=== PATIENT | female | born 1965 | race Caucasian/White ===

== ENCOUNTER 2016-10-15 23:56 | Inpatient (IN) | payer MEDICAID, OTHER ==
[~2016-10-15 23:56] MED LIST: ETOMIDATE 20 MG/10 ML VIAL IV PUSH ONE
[2016-10-15] MEDS ORDERED: PROPOFOL 1000 MG/100 ML INJ 100 ML ONE (23:59)
[2016-10-16] VITALS (19 sets, daily range): BP systolic 108–177; BP diastolic 61–85; PULSE 83–110; RESP 15–16; TEMP 97.4–99.7; O2SAT 97–100
[2016-10-16] MEDS ORDERED: MAGNESIUM HYDROXIDE SUSP 30 ML CUP PO PRN (00:15)
[2016-10-16] MEDS ORDERED: CHLORHEXIDINE GLUCONATE 2 % 1 PACK (2 CLOTHS) TOP PRN (00:15)
[2016-10-16] MEDS ORDERED: ENALAPRILAT 1.25 MG/ML VIAL IV PRN (00:15)
[2016-10-16] MEDS ORDERED: FLUMAZENIL 0.5 MG/5 ML VIAL IV PUSH PRN (00:15)
[2016-10-16] MEDS ORDERED: LORazepam 1 MG TAB PO PRN (00:15)
[2016-10-16] MEDS ORDERED: HALOPERIDOL LACTATE 5 MG/ML AMP IM PRN (00:15)
[2016-10-16] MEDS ORDERED: LORazepam 2 MG/ML VIAL IV PUSH PRN ×4 (00:15)
[2016-10-16] MEDS ORDERED: MORPHINE SULFATE 4 MG/ML INJ IV PRN (00:15)
[2016-10-16] MEDS: BACITRACIN TOP OINT 15 GM TUBE TOP SCH ×3 (00:15→21:00)
[2016-10-16] MEDS ORDERED: LORazepam 2 MG TAB PO PRN (00:15)
[2016-10-16] MEDS ORDERED: ONDANSETRON HCL 4 MG/2 ML VIAL IV PRN (00:15)
[2016-10-16] MEDS ORDERED: MISCELLANEOUS NURSING INFORMATION XX SCH (00:15)
--- NOTE | 2016-10-16 00:15 | PD ---
HPI Chief Complaint: Trauma (Alert) Time Seen by Provider: 00:07 Travel History International Travel<30 days: No Contact w/Intl Traveler<30days: No Traveled to known affect area: No History of Present Illness HPI This patient presents as a trauma alert. She is a 50-year-old lady that fell backwards and struck the back of her head. 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 I gave reported trauma surgeon Dr. Tay who was present in the ER upon arrival of the patient. She was airlifted from the land. Initially had a GCS of 14 with that declined to a GCS of 9. That's when the trauma alert was called. However she continued to decline and paramedics intubated her on scene and she arrived intubated. Obviously she can provide no history or review of systems. Medical history is unknown at this time. Allergies-Medications (Allergen,Severity, Reaction): Coded Allergies: UNOBTAINABLE (Unverified , 10/16/16) AMS Review of Systems ROS Limitations: Clinical Condition, Intubated Physical Exam Narrative GENERAL: Well-nourished, well-developed patient who arrives intubated. SKIN: Focused skin assessment reveals no rash and nodules. Skin is Warm and dry. HEAD: Has a large swollen area on the occiput without laceration. No active bleeding EYES: Pupils equal and round. No scleral icterus. No injection or drainage. ENT: No nasal bleeding or discharge. Mucous membranes pink and moist. NECK: Trachea midline. No JVD. C-collar maintained CARDIOVASCULAR: Regular rate and rhythm. No murmur appreciated. RESPIRATORY: No accessory muscle use. Clear to auscultation with respiratory bagging. Breath sounds equal bilaterally. GASTROINTESTINAL: Abdomen soft, non-tender, nondistended. Hepatic and splenic margins not palpable. MUSCULOSKELETAL: No obvious deformities. No clubbing. No cyanosis. No edema. NEUROLOGICAL: Patient is sedated and intubated. No obvious cranial nerve deficits. Impossible to test motor strength or sensation or speech. PSYCHIATRIC: Impossible to test mood and affect; insight and judgment likewise untestable. Data Data Orders Propofol 1000 Mg/100 Ml Inj (Diprivan 10 (10/15/16 23:59) I-Stat Profile (10/16/16 00:03) I-Stat Creatinine (10/16/16 00:03) Complete Blood Count With Diff (4/23/17 00:03) Prothrombin Time / Inr (Pt) (10/16/16 00:03) Act Partial Throm Time (Ptt) (10/16/16 00:03) Type And Screen (10/16/16 00:03) Fibrinogen (10/16/16 00:03) Alcohol (Ethanol) (10/16/16 00:03) Chest, Single Ap (10/16/16 00:03) Pelvis, Ap Only (Routine) (10/16/16 00:03) Ct Brain W/O Iv Contrast(Rout) (10/16/16 00:03) Ct Cerv Spine W/O Contrast (10/16/16 00:03) Iv Access Insert/Monitor (10/16/16 00:03) Ecg Monitoring (10/16/16 00:03) Oximetry (10/16/16 00:03) Oxygen Administration (10/16/16 00:03) Admit To Inpatient (10/16/16 ) Vital Signs (Adult) KULDEEP.QSHIFT (10/16/16 00:05) Intake + Output KULDEEP.Q8H (10/16/16 00:05) Neuro Checks KULDEEP.Q1H (10/16/16 00:05) Activity Bed Rest (10/16/16 00:05) Diet Npo (10/16/16 Breakfast) ^ Orogastric Tube (10/16/16 00:05) Warming Idamay / Warming Syst PRN (10/16/16 00:05) ^ Cervical Collar (10/16/16 00:05) ^ Instruction (10/16/16 00:05) Complete Blood Count With Diff (10/16/16 06:00) Basic Metabolic Panel (Bmp) (10/16/16 06:00) Chest, Single Ap (10/16/16 06:00) Arterial Blood Gas (Abg) (10/16/16 ) Sodium Chlor 0.9% 1000 Ml Inj (Ns 1000 M (10/16/16 00:05) Sodium Chloride 0.9% Flush (Ns Flush) (10/16/16 00:15) Morphine Inj (Morphine Inj) (10/16/16 00:15) Acetaminophen (Tylenol) (10/16/16 00:15) Enalaprilat Inj (Vasotec Inj) (10/16/16 00:15) Ondansetron Inj (Zofran Inj) (10/16/16 00:15) Pantoprazole Inj (Protonix Inj) (10/16/16 01:00) Bacitracin Oint (Baciguent Oint) (10/16/16 00:15) Folic Acid (Folate) (10/16/16 09:00) Thiamine (Vit B1) (Vitamin B1) (10/16/16 09:00) Multivitamin (Theragran) (10/16/16 09:00) Docusate Sodium (Colace) (10/16/16 09:00) Magnesium Hydroxide Liq (Milk Of Magnesi (10/16/16 00:15) Consult Tick Eradicator (10/16/16 ) ^ Initiate Protocol (10/16/16 00:05) ^ Instruction (10/16/16 00:05) Misc Nursing Information (10/16/16 00:15) Chlorhexidine 2% Cloth (Chlorhexidine 2% (10/16/16 04:00) Chlorhexidine 2% Cloth (Chlorhexidine 2% (10/16/16 00:15) Mrsa Pcr Surveillance (10/16/16 00:05) Alcohol Withdrawal Asmt-Ciwa Q4HX18 (10/16/16 00:05) Flumazenil Inj (Romazicon Inj) (10/16/16 00:15) Lorazepam (Ativan) (10/16/16 00:15) Lorazepam Inj (Ativan Inj) (10/16/16 00:15) Lorazepam (Ativan) (10/16/16 00:15) Lorazepam Inj (Ativan Inj) (10/16/16 00:15) Lorazepam Inj (Ativan Inj) (10/16/16 00:15) Lorazepam Inj (Ativan Inj) (10/16/16 00:15) Haloperidol Inj (Haldol Inj) (10/16/16 00:15) Inpatient Certification (10/16/16 ) Consult Emma Gts (10/16/16 ) Admit Order (Ed Use Only) (10/16/16 00:20) Labs Laboratory Tests Test 10/15/16 23:59 White Blood Count 8.1 TH/MM3 Red Blood Count 4.47 MIL/MM3 Hemoglobin 14.2 GM/DL Bedside Hemoglobin 15.3 G/DL Hematocrit 42.4 % Bedside Hematocrit 45.0 % Mean Corpuscular Volume 94.9 FL Mean Corpuscular Hemoglobin 31.8 PG Mean Corpuscular Hemoglobin 33.5 % Concent Red Cell Distribution Width 12.6 % Platelet Count 271 TH/MM3 Mean Platelet Volume 8.1 FL Neutrophils (%) (Auto) 39.5 % Lymphocytes (%) (Auto) 48.9 % Monocytes (%) (Auto) 6.9 % Eosinophils (%) (Auto) 3.9 % Basophils (%) (Auto) 0.8 % Neutrophils # (Auto) 3.2 TH/MM3 Lymphocytes # (Auto) 4.0 TH/MM3 Monocytes # (Auto) 0.6 TH/MM3 Eosinophils # (Auto) 0.3 TH/MM3 Basophils # (Auto) 0.1 TH/MM3 CBC Comment DIFF FINAL Differential Comment Prothrombin Time 10.1 SEC Prothromb Time International 0.9 RATIO Ratio Activated Partial 24.3 SEC Thromboplast Time Fibrinogen 327 mg/dL Bedside Sodium 146 MMOL/L Bedside Potassium 4.3 MMOL/L Bedside Chloride 107 MMOL/L Bedside Blood Urea Nitrogen 15 MG/DL Bedside Creatinine 1.0 MG/DL Bedside Glucose 119 MG/DL Ethyl Alcohol Level 245 MG/DL Blood Type O POSITIVE Antibody Screen NEGATIVE [facility] Medical Screen Exam Complete: Yes Emergency Medical Condition: Yes Medical Record Reviewed: Yes Differential Diagnosis Intracranial hemorrhage, skull fracture, concussion Narrative Course This patient arrives critically ill as a trauma alert with head injury and poor GCS and has been intubated for airway control A second IV was placed I started her on IV Diprivan for sedation, last BP 125 systolic I reviewed her chest x-ray which shows decent tube placement which is 3 cm above the breanna I reviewed her pelvis x-ray which is negative Brain CT shows no intracranial injury. Cervical spine CT is negative Alcohol level is 245 CBC is normal Metabolic profile is normal Coagulation studies are normal Patient has an acute head injury with poor GCS necessitating intubation to control airway She is intoxicated acutely of alcohol She is admitted to intensive care on a ventilator Metabolic profile Critical Care Narrative Aggregate critical care time was 34 minutes. Time to perform other separately billable procedures was not included in the critical care time. My time did not include minutes spent treating any other patients simultaneously or on activities that did not directly contribute to the patient's treatment. The services I provided to this patient were to treat and/or prevent clinically significant deterioration that could result in: Brain stem herniation, intracranial hemorrhage, permanent neurologic deficit I provided critical care services requiring my management, as noted below: Chart data review, documentation time, medication orders and management, vital sign assessments/reviewing monitor data, ordering and reviewing lab tests, ordering and interpreting/reviewing x-rays and diagnostic studies, care of the patient and discussion of the patient with the admitting physicians. Trauma Alert - Level One Trauma Alert Level One: Full trauma team activate Diagnosis Diagnosis: Primary Impression: Acute head injury with loss of consciousness Qualified Code: S06.9X1A - Acute head injury with loss of consciousness, with LOC of 30 min or less, initial encounter Additional Impressions: Airway compromise Alcohol intoxication Qualified Code: F10.129 - Alcohol intoxication, with unspecified complication Admitting Physician Requests: Milton Gudino MD Oct 16, 2016 00:15
--- NOTE | 2016-10-16 00:22 | RADRPT ---
EXAM DATE/TIME: 10/16/2016 00:09 [facility] COMPARISON: No previous studies available for comparison. INDICATIONS : Trauma; fall. RADIATION DOSE: 50.02 CTDIvol (mGy) MEDICAL HISTORY : Non-responsive. SURGICAL HISTORY : Non-responsive. ENCOUNTER: Initial ACUITY: 1 day PAIN SCALE: Non-responsive LOCATION: cranial TECHNIQUE: Multiple contiguous axial images were obtained of the head. Using automated exposure control and adj ustment of the mA and/or kV according to patient size, radiation dose was kept as low as reasonably a chievable to obtain optimal diagnostic quality images. FINDINGS: CEREBRUM: The ventricles are normal for age. No evidence of midline shift, mass lesion, hemorrhage or acute in farction. No extra-axial fluid collections are seen. POSTERIOR FOSSA: The cerebellum and brainstem are intact. The 4th ventricle is midline. The cerebellopontine angle i s unremarkable. EXTRACRANIAL: The visualized portion of the orbits is intact. Right posterior parietal soft tissue hematoma. Mucosa l thickening involving the visualized paranasal sinuses. No air-fluid levels. Mastoid air cells are c lear. SKULL: The calvaria is intact. No evidence of skull fracture. CONCLUSION: 1. No acute intracranial abnormality. 2. Right parietal soft tissue hematoma. 3. Chronic paranasal sinus disease. Tin Stewart Jr., MD on October 16, 2016 at 0:18 Board Certified Radiologist. This report was verified electronically.
[2016-10-16 00:28] LABS: I-STAT POTASSIUM 4.3 MMOL/L (3.5-4.9)
[2016-10-16 00:29] LABS: AUTOMATED NEUTROPHIL # 3.2 TH/MM3 (1.8-7.7); BASOPHIL # 0.1 TH/MM3 (0-0.2); BASOPHIL % 0.8 % (0.0-2.0); EOSINOPHIL # 0.3 TH/MM3 (0-0.4); EOSINOPHIL % 3.9 % (0.0-4.0); HEMATOCRIT 42.4 % (35.0-46.0); HEMO FLAGS DIFF FINAL; LYMPH % 48.9 % (9.0-44.0); MEAN CELL VOLUME 94.9 FL (80.0-100.0); MEAN CORPUSCULAR HEMOGLOBIN 31.8 PG (27.0-34.0); MEAN CORPUSCULAR HGB CONC 33.5 % (32.0-36.0); MONO % 6.9 % (0.0-8.0); NEUT % 39.5 % (16.0-70.0); PLATELET COUNT 271 TH/MM3 (150-450); RED BLOOD COUNT 4.47 MIL/MM3 (4.00-5.30); RED CELL DISTRIBUTION WIDTH 12.6 % (11.6-17.2); WHITE BLOOD COUNT 8.1 TH/MM3 (4.0-11.0)
--- NOTE | 2016-10-16 00:32 | RADRPT ---
EXAM DATE/TIME: 10/15/2016 23:51 [facility] COMPARISON: No previous studies available for comparison. INDICATIONS : E-T tube placement on a trauma alert who fell from a standing position. MEDICAL HISTORY : None. SURGICAL HISTORY : None. ENCOUNTER: Initial ACUITY: 1 day PAIN SCORE: Non-responsive. LOCATION: Bilateral chest FINDINGS: A single view of the chest demonstrates the lungs to be symmetrically aerated without evidence of mas s, infiltrate or effusion. The cardiomediastinal contours are unremarkable. Osseous structures are intact. Tip of the endotracheal tube approximately 3 cm cephalad to the breanna. CONCLUSION: Endotracheal tube. No acute intrathoracic process. Tin Stewart Jr., MD on October 16, 2016 at 0:30 Board Certified Radiologist. This report was verified electronically.
--- NOTE | 2016-10-16 00:32 | RADRPT ---
EXAM DATE/TIME: 10/16/2016 00:09 [facility] COMPARISON: No previous studies available for comparison. INDICATIONS : Trauma; fall. RADIATION DOSE: 21.40 CTDIvol (mGy) MEDICAL HISTORY : Non-responsive. SURGICAL HISTORY : Non-responsive. ENCOUNTER: Initial ACUITY: 1 day PAIN SCALE: Non-responsive LOCATION: neck TECHNIQUE: Volumetric scanning of the cervical spine was performed. Multiplanar reconstructions in the sagittal, coronal and oblique axial planes were performed. Using automated exposure control and adjustment o f the mA and/or kV according to patient size, radiation dose was kept as low as reasonably achievable to obtain optimal diagnostic quality images. FINDINGS: VERTEBRAE: Normal vertebral body height. ALIGNMENT: No evidence of subluxation. C2-C3: The bony spinal canal is normal in size. No evidence of disc bulge or herniation. The neural forami na are bilaterally patent. C3-C4: The bony spinal canal is normal in size. No evidence of disc bulge or herniation. The neural forami na are bilaterally patent. C4-C5: There is a broad-based disc bulge that just touches the ventral portion of the cord. Bony uncovertebr al hypertrophy generat moderate right and mild left neural foraminal narrowing. C5-C6: There is a broad-based disc osteophyte complex eccentric to the left and abuts the left ventral porti on of the cord and causes effacement of the left lateral recess. Bony uncovertebral hypertrophy gener at significant bilateral neural foraminal narrowing. C6-C7: A mild broad-based disc osteophyte complex without abutment of the cord. Bony uncovertebral hypertrop hy generat mild left neural foraminal narrowing. The right is patent. C7-T1: The bony spinal canal is normal in size. No evidence of disc bulge or herniation. The neural forami na are bilaterally patent. CONCLUSION: 1. No fracture or dislocation. 2. Multilevel degenerative changes. Tin Stewart Jr., MD on October 16, 2016 at 0:27 Board Certified Radiologist. This report was verified electronically.
--- NOTE | 2016-10-16 00:33 | RADRPT ---
EXAM DATE/TIME: 10/15/2016 23:51 [facility] COMPARISON: No previous studies available for comparison. INDICATIONS : Trauma Alert. fall from a standing position. MEDICAL HISTORY : None. SURGICAL HISTORY : None. ENCOUNTER: Initial ACUITY: 1 day PAIN SCORE: Non-responsive. LOCATION: Bilateral pelvis FINDINGS: A single frontal view of the pelvis demonstrates no evidence of fracture. The bony pelvic ring is in tact. Bony mineralization is normal. The soft tissues are intact. CONCLUSION: Unremarkable examination of the pelvis. Tin Stewart Jr., MD on October 16, 2016 at 0:31 Board Certified Radiologist. This report was verified electronically.
[2016-10-16 00:48] LABS: INTERNATIONAL NORMALIZED RATIO 0.9 RATIO; PROTHROMBIN TIME - PATIENT 10.1 SEC (9.8-11.6)
[2016-10-16 00:50] LABS: APTT (PATIENT) 24.3 SEC (24.3-30.1)
[2016-10-16] MEDS: PANTOPRAZOLE SODIUM 40 MG VIAL IVP SCH ×2 (01:53→23:59)
[2016-10-16] MEDS: SODIUM CHLOR 0.9% 1000 ML INJ 1,000 ML IV SCH ×3 (01:53→21:37)
[2016-10-16] MEDS ORDERED: BUPR150XL PO (02:11)
--- NOTE | 2016-10-16 02:18 | PD.CONS ---
HPI Service Critical Care Medicine Consult Requested By Primary Care Physician Unknown History of Present Illness 50-year-old lady that fell backwards and struck the back of her head. Initially had a GCS of 14 with that declined to a GCS of 9. That's when the trauma alert was called. She continued to decline and paramedics intubated her on scene and she arrived intubated. Review of Systems ROS Unable to obtain patient is sedated and intubated Past Family Social History Allergies: Coded Allergies: No Known Allergies (Unverified , 10/16/16) Past Medical History Unable to obtain Past Surgical History Unable to obtain Reported Medications Reported Meds & Active Scripts Active Reported Wellbutrin Xl 24 HR (Bupropion HCl) 150 Mg Tab 150 Mg PO DAILY Active Ordered Medications Current Medications Medications (Trade) Dose Ordered Sig/Omar Route PRN Reason Start Time Stop Time Status Last Admin Dose Admin Sodium Chloride (NS 1000 ml Inj) 1,000 ml @ 100 mls/hr Q10H IV 10/16/16 00:05 10/16/16 01:53 Sodium Chloride (NS Flush) 2 ml UNSCH PRN IV FLUSH FLUSH AFTER USING IV ACCESS 10/16/16 00:15 Morphine Sulfate (Morphine Inj) 2 mg Q1H PRN IV BREAKTHROUGH PAIN 10/16/16 00:15 Acetaminophen (Tylenol) 650 mg Q6H PRN PO TEMPERATURE > 102 F 10/16/16 00:15 Enalaprilat (Vasotec Inj) 1.25 mg Q8H PRN IV SBP>180, DBP>95 10/16/16 00:15 Ondansetron HCl (Zofran Inj) 4 mg Q6H PRN IV NAUSEA OR VOMITING 10/16/16 00:15 Pantoprazole Sodium (Protonix Inj) 40 mg Q24H IVP 10/16/16 01:00 10/16/16 01:53 Bacitracin (Baciguent Oint) 1 applic BID TOP 10/16/16 00:15 Folic Acid (Folate) 1 mg DAILY PO 10/16/16 09:00 10/19/16 08:59 Thiamine HCl (Vitamin B1) 100 mg DAILY PO 10/16/16 09:00 10/19/16 08:59 Multivitamins (Theragran) 1 tab DAILY PO 10/16/16 09:00 10/19/16 08:59 Docusate Sodium (Colace) 100 mg BID PO 10/16/16 09:00 Magnesium Hydroxide (Milk Of Magnkaren Liq) 30 ml Q6H PRN PO CONSTIPATION 10/16/16 00:15 Miscellaneous Information 1 Q361D XX 10/16/16 00:15 10/16/16 00:15 Chlorhexidine Gluconate (Chlorhexidine 2% Cloth) 3 pack Taper DAILY@04 TOP 10/16/16 04:00 10/12/17 03:59 Chlorhexidine Gluconate (Chlorhexidine 2% Cloth) 3 pack UNSCH PRN TOP HYGIENIC CARE 10/16/16 00:15 Flumazenil (Romazicon Inj) 0.2 mg Q1M PRN IV PUSH SEE LABEL COMMENTS 10/16/16 00:15 Lorazepam (Ativan) 1 mg Q4H PRN PO CIWA 8 - 10 10/16/16 00:15 Lorazepam (Ativan Inj) 1 mg Q4H PRN IV PUSH CIWA 8 - 10 10/16/16 00:15 Lorazepam (Ativan) 2 mg Q2H PRN PO CIWA 11-14 10/16/16 00:15 Lorazepam (Ativan Inj) 2 mg Q2H PRN IV PUSH CIWA 11-14 10/16/16 00:15 Lorazepam (Ativan Inj) 2 mg Q1H PRN IV PUSH CIWA 15-20 10/16/16 00:15 Lorazepam (Ativan Inj) 2 mg Q15M PRN IV PUSH CIWA > 20 10/16/16 00:15 Haloperidol Lactate (Haldol Inj) 2 mg Q15M PRN IM SEE LABEL COMMENTS 10/16/16 00:15 Family History Unable to obtain Social History Unable to obtain Physical Exam Vital Signs Vital Signs Date Time Temp Pulse Resp B/P Pulse Ox O2 Delivery O2 Flow Rate FiO2 10/16/16 00:40 100 10/16/16 00:30 100 100 Physical Exam GENERAL: Obese, well-developed patient. Sedated and intubated SKIN: Warm and dry. HEAD: Normocephalic. EYES: No scleral icterus. No injection or drainage. NECK: Supple, trachea midline. No JVD or lymphadenopathy. CARDIOVASCULAR: Regular rate and rhythm without murmurs, gallops, or rubs. RESPIRATORY: Breath sounds equal bilaterally. No accessory muscle use. GASTROINTESTINAL: Abdomen soft, non-tender, nondistended. MUSCULOSKELETAL: No cyanosis, or edema. BACK: Nontender without obvious deformity. No CVA tenderness. EXTREMITIES: No clubbing cyanosis or edema Laboratory Laboratory Tests Test 10/15/16 23:59 White Blood Count 8.1 Red Blood Count 4.47 Hemoglobin 14.2 Bedside Hemoglobin 15.3 Hematocrit 42.4 Bedside Hematocrit 45.0 Mean Corpuscular Volume 94.9 Mean Corpuscular Hemoglobin 31.8 Mean Corpuscular Hemoglobin 33.5 Concent Red Cell Distribution Width 12.6 Platelet Count 271 Mean Platelet Volume 8.1 Neutrophils (%) (Auto) 39.5 Lymphocytes (%) (Auto) 48.9 Monocytes (%) (Auto) 6.9 Eosinophils (%) (Auto) 3.9 Basophils (%) (Auto) 0.8 Neutrophils # (Auto) 3.2 Lymphocytes # (Auto) 4.0 Monocytes # (Auto) 0.6 Eosinophils # (Auto) 0.3 Basophils # (Auto) 0.1 CBC Comment DIFF FINAL Differential Comment Prothrombin Time 10.1 Prothromb Time International 0.9 Ratio Activated Partial 24.3 Thromboplast Time Fibrinogen 327 Bedside Sodium 146 Bedside Potassium 4.3 Bedside Chloride 107 Bedside Blood Urea Nitrogen 15 Bedside Creatinine 1.0 Bedside Glucose 119 Ethyl Alcohol Level 245 Blood Type O POSITIVE Antibody Screen NEGATIVE Result Diagram: 10/15/16 6409 Assessment and Plan Assessment and Plan Respiratory failure - Intubated for an airway protection - No SBT or weaning until neurologically improved - Frequent ABGs and chest x-rays daily Encephalopathy - Metabolic toxic - ??? Alkaline intoxication - Concussion - CT head negative - MRI and EEG Syncope - MRI EKG echocardiogram - Carotid ultrasound DVT GI prophylaxis - Teds SCDs - Lovenox and Pepcid Critical Care: The total critical care time was 35 minutes. Time to perform other separately billable procedures was not included in the critical care time. David Fragoso MD Oct 16, 2016 02:18
[2016-10-16 02:47] LABS: BLOOD, URINE NEG (NEG); GLUCOSE,URINE NEG (NEG); KETONE, URINE NEG (NEG); NITRITE,URINE NEG (NEG); URINE COLOR LIGHT-YELLOW (YELLW/STRAW)
[2016-10-16 02:54] LABS: COMMENT (UR) CATH-CULT NOT IND; CULTURE IF INDICATED CATH CULTURE NOT IND
[2016-10-16] MEDS: CHLORHEXIDINE GLUCONATE 2 % 1 PACK (2 CLOTHS) TOP SCH (04:00)
[2016-10-16 04:01] LABS: BICARBONATE 21.2 MEQ/L (21.0-32.0)
[2016-10-16 04:12] LABS: POTASSIUM 3.7 MEQ/L (3.5-5.1)
[2016-10-16 04:15] LABS: AUTOMATED NEUTROPHIL # 15.9 TH/MM3 (1.8-7.7); BASOPHIL # 0.1 TH/MM3 (0-0.2); BASOPHIL % 0.3 % (0.0-2.0); EOSINOPHIL # 0.3 TH/MM3 (0-0.4); EOSINOPHIL % 1.6 % (0.0-4.0); HEMATOCRIT 42.3 % (35.0-46.0); HEMO FLAGS DIFF FINAL; MEAN CELL VOLUME 93.9 FL (80.0-100.0); MEAN CORPUSCULAR HEMOGLOBIN 31.7 PG (27.0-34.0); MEAN CORPUSCULAR HGB CONC 33.8 % (32.0-36.0); MONO % 4.7 % (0.0-8.0); NEUT % 78.4 % (16.0-70.0); PLATELET COUNT 217 TH/MM3 (150-450); RED CELL DISTRIBUTION WIDTH 12.5 % (11.6-17.2); WHITE BLOOD COUNT 20.2 TH/MM3 (4.0-11.0)
--- NOTE | 2016-10-16 04:36 | MH ---
cc: JONATHAN ZAMAN DATE OF ADMISSION: 10/16/2016 CHIEF COMPLAINT Trauma alert HISTORY OF PRESENT ILLNESS The patient is a 48-year-old female, who per EMS report was intoxicated and fell from standing height onto the back of her head. She was unconscious for approximately two minutes and when EMS arrived, she initially refused the chance for it, however, she had sudden decrease in GCS and altered mental status prompting transport to [facility] as a Trauma Alert. The patient was found to be hemodynamically stable, was GCS less than 8 en route and underwent rapid sequence intubation with etomidate of 7 ET tube. The patient arrives at [facility]. Breathing is intact and verified. The patient was hemodynamically stable with a blood per rectum within normal range. O2 saturations were over 90%. REVIEW OF SYSTEMS, PAST MEDICAL AND SURGICAL HISTORY, SOCIAL HISTORY, ALLERGIES, MEDICATIONS, FAMILY HISTORY: Unobtainable, due to patient's altered mental status. PHYSICAL EXAMINATION Vital signs: Stable on the ventilator, normotensive. GENERAL: The patient is an obese female, intubated, comatose, medically induced after intubation. GCS 3, with ET tube in place. HEAD: The patient's head is normocephalic, swelling of the posterior occipital area with stable skull with no active bleeding or laceration. Midface is stable. Oral cavity is clear with the exception of ET tube. Pupils are round, reactive to light and accommodation, equal. NECK: Cervical collar in place. No deformity of cervical spine. Trachea is midline. No JVD. CHEST: Chest wall is stable, breath sounds present bilaterally. HEART: Regular rate and rhythm. ABDOMEN: Soft, nondistended. No ascites. No organomegaly. No seatbelt sign. BACK: No thoracic or lumbar deformity. No ecchymosis or trauma. EXTREMITIES: No clubbing, cyanosis or edema, no deformity all four extremities. NEUROLOGIC: GCS of 3, and intubated. LABORATORY VALUES: Pending. IMAGING STUDIES CT scan of the head does show no acute intracranial abnormality, right parietal soft tissue hematoma, chronic paranasal sinus disease. ASSESSMENT/PLAN The patient is a 48-year-old female who fell from standing height, possible ETOH. GCS less an 8, intubated. On arrival GCS 3 after RSI by EMS. The patient is hemodynamically stable. We will place her on short acting sedation with Diprivan and intubation to the Trauma Intensive Care Unit. Will consult polishing machine operator for management of the patient's airway and breathing. We will check and maintain the patient in a cervical collar. MD RAVIN Cason/LESLIE /12:28 AM /3:44 AM
[2016-10-16 05:37] LABS: BLOOD GAS CARBOXYHEMOGLOBIN 0.7 % (0-4); BLOOD GAS HCO3 21 mmol/L (22-26); BLOOD GAS METHEMOGLOBIN 1.2 % (0-2); BLOOD GAS O2 HGB SATURATION 93 % (90-100); BLOOD GAS OXYGEN CONTENT 17.5 Vol % (12.0-20.0); BLOOD GAS PCO2 38 mmHg (38-42); BLOOD GAS PO2 79 mmHg (61-120); BLOOD GAS TOTAL HGB 13.3 G/DL (12.0-16.0); CRITICAL VALUE NO; OXYGEN DEVICE VENTILATOR; TEMP CORR TO 98.6
[2016-10-16] MEDS: PROPOFOL 1000 MG/100 ML INJ 100 ML IV SCH ×5 (05:37→23:59)
[2016-10-16 05:38] LABS: DRAW SITE RT RADIAL; FIO2 50 %; NUMBER OF ARTERIAL PUNCTURES 2; STAT YES; ULNAR PULSE PRESENT; VENT SETTINGS AC/16/500/PEEP5
--- NOTE | 2016-10-16 06:39 | RADRPT ---
EXAM DATE/TIME: 10/16/2016 05:15 [facility] COMPARISON: CHEST SINGLE AP, October 15, 2016, 23:51. INDICATIONS : Shortness of breath, possible pulmonary disease. MEDICAL HISTORY : None. SURGICAL HISTORY : None. ENCOUNTER: Subsequent ACUITY: 1 day PAIN SCORE: Non-responsive. LOCATION: Bilateral chest FINDINGS: A single portable frontal view the chest shows the tip of the endotracheal tube 4 cm proximal to jona na. Nasogastric tube is coiled back upon itself within the lower thoracic esophagus. Bibasilar infilt rates. These are new. No discernible effusions. Heart is normal in size. CONCLUSION: 1. New bibasilar infiltrates. 2. Nasogastric tube coiled in the lower thoracic esophagus. Tin Stewart Jr., MD on October 16, 2016 at 6:37 Board Certified Radiologist. This report was verified electronically.
[2016-10-16] MEDS ORDERED: RESP: ALBUTEROL 2.5 MG/IPRATROPIUM 0.5 MG NEB (PRN) NEB (08:00)
[2016-10-16] MEDS: CHLORHEXIDINE 0.12% (ORAL KIT) 15 ML CUP MT SCH ×2 (08:00→20:58)
[2016-10-16] MEDS ORDERED: MAGNESIUM SULFATE INJ 4 GM in SODIUM CHLORIDE 0.9% INJ 92 ML IV PRN (08:15)
[2016-10-16] MEDS ORDERED: POTASSIUM PHOSPHATE MONOBASIC 500 MG TAB PO/TUBE PRN (08:15)
[2016-10-16] MEDS ORDERED: POTASSIUM PHOSPHATE INJ 30 MMOL in SODIUM CHLOR 0.9% 250 ML INJ 250 ML IV PRN (08:15)
[2016-10-16] MEDS ORDERED: POTASSIUM PHOSPHATE MONOBASIC 500 MG TAB PO PRN (08:15)
[2016-10-16] MEDS ORDERED: POTASSIUM CHLOR 20 MEQ PREMIX 100 ML IV PRN (08:15)
[2016-10-16] MEDS ORDERED: MAGNESIUM OXIDE 400 MG TAB PO PRN (08:15)
[2016-10-16] MEDS ORDERED: DEXTROSE 50% IN WATER 50 ML VIAL(D50) IV PUSH PRN (08:15)
[2016-10-16] MEDS ORDERED: SODIUM PHOSPHATE INJ 30 MMOL in SODIUM CHLOR 0.9% 250 ML INJ 240 ML IV PRN (08:15)
[2016-10-16] MEDS ORDERED: POTASSIUM CHLOR 40 MEQ PREMIX 100 ML IV PRN ×2 (08:15)
[2016-10-16] MEDS ORDERED: MAGNESIUM SULFATE INJ 2 GM in SODIUM CHLORIDE 0.9% INJ 96 ML IV PRN (08:15)
--- NOTE | 2016-10-16 08:27 | HHI.PR ---
Subjective Remarks I saw and evaluated this patient on morning rounds. Patient admitted overnight with acute syncopal loss of consciousness with fall from standing and head trauma, CT brain negative for acute bleed. Intubated in field for progressive worsening mental status. this morning, persistently altered. I talked with her son at bedside and he says he did not witness the fall, but his younger brother did and states that she passed out and then hit her head. No history of prior CVA, seizures. On my exam, she is still severely encephalopathic. withdrawing to pain only. not localizing. grimacing only to pain. GCS 6 (E1,V1,M4). not on vasopressors. lungs clear. normal and regular rate and rhythm without appreciable murmurs. no peripheral edema with adequate distal pulses. clear urine in [place] bag. Laboratory evidence this morning has worsening leukocytosis to 20k this AM but patient remained completely afebrile overnight, otherwise no acute abnormalities. Assessment: middle-aged appearing woman s/p what appears to be a syncopal fall without overt evidence of trauma from the fall, but persistent severe acute encephalopathy. Plan: 1. Acute Encephalopathy, unkown type, toxic vs. metabolic -- check ammonia level -- check tylenol, ASA levels -- MRI brain -- Portable EEG -- frequent neuro checks -- hold long-acting sedating meds -- propofol as needed for vent synchrony and goal RASS -2. 2. Acute Hypoxic and Hypercarbic Respiratory Failure -- does not meet SBT criteria given her altered mental status -- vent bundle -- HOB at 30 degrees -- wean fio2 for goal spo2 > 90% 3. Syncope -- MRI and EEG as above. -- telemetry -- may require carotid dopplers and echo at some point, will hold off and complete initial eval as above. 4. Alcohol intoxication -- watch for withdraw signs -- hold off on CIWA given persistent severe encephalopathy currently -- daily thiamine 5. Acute protein calorie malnutrition- mild -- OG tube -- jevity 1.5, initial goal 60 -- nutrition consult for recs 6. Hypokalemia -- ICU electrolyte protocol. -- daily BMP 7. Leukocytosis -- hold off on empiric abx. patient has remained afebrile. likely stress response. gross culture for new fever. -- daily CBC. Prophylaxis: -- protonix -- SCDs -- SQH Dispo: remain in the ICU. she remains critically ill with worsening severe encephalopathy. This patient remains critically ill with one or more organ systems which are or may become a threat to life. This addendum represents an additional 51 minutes in excess of any time previously documented in the care and management of this patient. This time is discontinuous, exclusive of procedures, and includes, but is not limited to, evaluation of the patient, review of the medical record, discussions with family, consultants, nursing staff, or respiratory therapy, and documentation in the medical record. Objective Vital Signs Date Time Temp Pulse Resp B/P Pulse Ox O2 Delivery O2 Flow Rate FiO2 10/16/16 07:17 98 50 10/16/16 06:00 110 10/16/16 05:19 100 50 10/16/16 05:00 50 10/16/16 04:00 100 10/16/16 04:00 98.6 96 16 146/76 100 10/16/16 04:00 96 10/16/16 02:00 95 10/16/16 01:00 94 10/16/16 01:00 100 Mechanical Ventilator 100 10/16/16 00:40 100 10/16/16 00:30 100 10/16/16 00:30 100 100 10/16/16 00:30 97.4 94 16 177/85 100 I/O 10/15/16 10/15/16 10/15/16 10/16/16 10/16/16 10/16/16 07:00 15:00 23:00 07:00 15:00 23:00 Intake Total 328 ml Output Total 1450 ml Balance -1122 ml Intake IV Total 328 ml Output Urine Total 1150 ml Gastric Drainage Total 300 ml # Bowel Movements 0 Result Diagram: 10/16/16 0320 10/16/16 0320 Emory Coleman MD Oct 16, 2016 08:27
[2016-10-16 08:47] LABS: AMPHETAMINE, URINE NEG (NEG); BARBITURATES, URINE NEG (NEG); COCAINE, URINE NEG (NEG)
[2016-10-16] MEDS ORDERED: DOCUSATE SODIUM 100 MG CAP PO SCH (09:00)
[2016-10-16] MEDS: DOCUSATE SODIUM 50 MG/SENNA 8.6 MG TAB PO SCH ×2 (10:00→21:43)
[2016-10-16] MEDS: THIAMINE HCL 100 MG TAB PO SCH (10:00)
[2016-10-16] MEDS: MULTIVITAMIN TAB PO SCH (10:00)
[2016-10-16] MEDS: FOLIC ACID 1 MG TAB PO SCH (10:00)
[2016-10-16] MEDS: RESP: ALBUTEROL 2.5 MG/IPRATROPIUM 0.5 MG NEB (SCH) NEB ×3 (10:01→19:40)
[2016-10-16] MEDS: INSULIN NovoLIN REGULAR SUPPLEMENTAL SCALE SQ SCH ×3 (12:00→23:55)
[2016-10-16] MEDS: HEPARIN SODIUM - SQ 10,000 UNITS/ML VIAL SQ SCH ×2 (13:35→21:43)
--- NOTE | 2016-10-16 14:53 | RADRPT ---
EXAM DATE/TIME: 10/16/2016 14:24 [facility] COMPARISON: CT BRAIN W/O CONTRAST, October 16, 2016, 0:09. INDICATIONS : Fall/head trauma. MEDICAL HISTORY : None. SURGICAL HISTORY : None. ENCOUNTER: Initial ACUITY: 1 day PAIN SCORE: 0/10 LOCATION: cranial TECHNIQUE: Multiplanar, multisequence MRI of the brain was performed without contrast. FINDINGS: CEREBRUM: The ventricles are normal for age. No evidence of midline shift, mass lesion, hemorrhage or acute in farction. No extraaxial fluid collections are seen. The pituitary gland and suprasellar cistern are normal in configuration. WHITE MATTER: No significant signal abnormalities are seen in the white matter. POSTERIOR FOSSA: The cerebellum and brainstem are intact. The 4th ventricle is midline. The cerebellopontine angle is unremarkable. The cerebellar tonsils are normal in position. DIFFUSION IMAGING: No focal areas of restricted diffusion are seen. No evidence of acute infarction. EXTRACRANIAL: The visualized portions of the orbits are unremarkable. There is mucosal thickening throughout the si nuses. There is a right parietal scalp hematoma. CONCLUSION: 1. No intracranial abnormality is seen. 2. Right frontal scalp hematoma. 3. Sinus disease. Sunil Nam MD on October 16, 2016 at 14:49 Board Certified Radiologist. This report was verified electronically.
--- NOTE | 2016-10-16 18:56 | MG ---
cc: JENNY CASTRO M.D. Lab No: Date: 10/16/2016 Age: Sex: F Race: REQUESTING: Dr. Stewart. HISTORY: An EEG was obtained on this patient with a history of being intubated on Diprivan and trying to sit up, off and on sedation. MEDICATIONS: 1. Protonix. 2. Diprivan. DESCRIPTION OF THE RECORD: The EEG is showing asleep features. There are sleep spindles and there is low amplitude beta activity. There are some alpha rhythms intermixed as well as some probable K complexes intermittently. There is fluctuation in the background rhythms. Later on there is brief awakening and the background is obviously reactive and there is some artifact. There is body movement intermittently. Photic stimulation disclosed no significant change. INTERPRETATION: Normal predominantly asleep EEG. Jenny Castro MD [facility] /6:38 PM /6:52 PM
[2016-10-17] VITALS (16 sets, daily range): BP systolic 106–166; BP diastolic 58–79; PULSE 78–90; RESP 16–21; TEMP 97.5–99.2; O2SAT 94–100
[2016-10-17] MEDS: RESP: ALBUTEROL 2.5 MG/IPRATROPIUM 0.5 MG NEB (SCH) NEB ×4 (03:59→21:44)
[2016-10-17] MEDS: CHLORHEXIDINE GLUCONATE 2 % 1 PACK (2 CLOTHS) TOP SCH (04:00)
[2016-10-17] MEDS: PROPOFOL 1000 MG/100 ML INJ 100 ML IV SCH ×2 (04:13→08:21)
[2016-10-17 04:20] LABS: HEMATOCRIT 33.5 % (35.0-46.0); MEAN CELL VOLUME 94.1 FL (80.0-100.0); MEAN CORPUSCULAR HEMOGLOBIN 31.4 PG (27.0-34.0); MEAN CORPUSCULAR HGB CONC 33.4 % (32.0-36.0); PLATELET COUNT 202 TH/MM3 (150-450); RED BLOOD COUNT 3.56 MIL/MM3 (4.00-5.30); RED CELL DISTRIBUTION WIDTH 12.7 % (11.6-17.2); REVIEW FLAG FINAL; WHITE BLOOD COUNT 15.6 TH/MM3 (4.0-11.0)
[2016-10-17 04:23] LABS: BICARBONATE 25.8 MEQ/L (21.0-32.0); POTASSIUM 3.3 MEQ/L (3.5-5.1)
--- NOTE | 2016-10-17 04:31 | RADRPT ---
EXAM DATE/TIME: 10/17/2016 03:08 [facility] COMPARISON: CHEST SINGLE AP, October 16, 2016, 5:15. INDICATIONS : Shortness of breath. MEDICAL HISTORY : None. SURGICAL HISTORY : None. ENCOUNTER: Subsequent ACUITY: 2 days PAIN SCORE: Non-responsive. LOCATION: Bilateral chest FINDINGS: The support devices remain in place. There is some mild bibasilar infiltrates which are improving com pared to the prior study. No evidence of pneumothorax. Heart size is within normal limits. No definit e pleural effusions. The bony structures are stable. CONCLUSION: Improving bibasilar infiltrates. Philippe Davis MD on October 17, 2016 at 4:29 Board Certified Radiologist. This report was verified electronically.
[2016-10-17] MEDS: POTASSIUM CHLOR 20 MEQ PREMIX 100 ML IV PRN ×2 (04:57→07:00)
[2016-10-17] MEDS: HEPARIN SODIUM - SQ 10,000 UNITS/ML VIAL SQ SCH ×3 (05:39→22:39)
[2016-10-17] MEDS: INSULIN NovoLIN REGULAR SUPPLEMENTAL SCALE SQ SCH ×3 (05:39→17:11)
[2016-10-17] MEDS: SODIUM CHLOR 0.9% 1000 ML INJ 1,000 ML IV SCH ×2 (05:57→14:39)
[2016-10-17] MEDS: CHLORHEXIDINE 0.12% (ORAL KIT) 15 ML CUP MT SCH ×2 (08:20→20:00)
[2016-10-17] MEDS: THIAMINE HCL 100 MG TAB PO SCH (08:21)
[2016-10-17] MEDS: SODIUM CHLORIDE 0.9% FLUSH 10 ML FLUSH IV FLUSH PRN (08:21)
[2016-10-17] MEDS: BACITRACIN TOP OINT 15 GM TUBE TOP SCH ×2 (08:21→20:40)
[2016-10-17] MEDS: DOCUSATE SODIUM 50 MG/SENNA 8.6 MG TAB PO SCH ×2 (08:22→20:40)
[2016-10-17] MEDS: FOLIC ACID 1 MG TAB PO SCH (08:22)
[2016-10-17] MEDS: MULTIVITAMIN TAB PO SCH (08:22)
--- NOTE | 2016-10-17 09:56 | RADRPT ---
EXAM DATE/TIME: 10/17/2016 08:21 [facility] COMPARISON: No previous studies available for comparison. INDICATIONS : Syncope. MEDICAL HISTORY : Hypertension. Coronary artery disease. SURGICAL HISTORY : Unable to obtain. ENCOUNTER: Initial ACUITY: 1 day PAIN SCORE: Nonresponsive. LOCATION: Bilateral neck PEAK SYSTOLIC VELOCITIES (cm/sec): ICA/CCA RATIO: Right: 1.2 Left: 1.4 ICA: Right: 98 Left: 127 CCA: Right: 80 Left: 91 ECA: Right: 118 Left: 98 VERTEBRAL: Right: 43 antegrade Left: 49 antegrade Elevated flow velocities and ICA/CCA ratios have been found to correlate with increased degrees of vessel stenosis, calculated as percentage of diameter relative to a normal segment of distal ICA/CCA FINDINGS: RIGHT CAROTID: No significant stenosis is visualized. The waveforms are within normal limits. LEFT CAROTID: No significant stenosis is visualized. The waveforms are within normal limits. VERTEBRAL ARTERIES: Antegrade flow is seen in both vertebral arteries. MISCELLANEOUS: None. CONCLUSION: Negative exam. No significant atherosclerotic plaquing. No sonographic or Doppler findings of a hemodynamically significant stenosis. Lai Mathew MD on October 17, 2016 at 9:49 Board Certified Radiologist. This report was verified electronically.
--- NOTE | 2016-10-17 10:52 | HHI.CCPN ---
Subjective Remarks/Hospital Course 50-year-old lady that fell backwards and struck the back of her head. Initially had a GCS of 14 with that declined to a GCS of 9. That's when the trauma alert was called. She continued to decline and paramedics intubated her on scene and she arrived intubated. Intoxicated with alcohol level 254 on admission> SUBJ 10/17: Waking up intermittently following commands, son at the bedside translates for her (patient understands Polish only). Chest x-ray shows improving infiltrates Objective Vital Signs Date Time Temp Pulse Resp B/P Pulse Ox O2 Delivery O2 Flow Rate FiO2 10/17/16 10:00 81 10/17/16 08:00 35 10/17/16 08:00 99.2 17 166/79 98 10/17/16 07:00 Mechanical Ventilator Intake and Output 10/16/16 10/16/16 10/17/16 08:00 16:00 00:00 Intake Total 328 ml 1018 ml 1269 ml Output Total 1450 ml 600 ml 300 ml Balance -1122 ml 418 ml 969 ml Result Diagram: 10/17/16 0336 10/17/16 0336 Objective Remarks GENERAL/NEURO: Obese, well-developed patient. Sedated and intubated. On sedation hold, able to follow some commands SKIN: Warm and dry. HEAD: Normocephalic. EYES: No scleral icterus. No injection or drainage. NECK: Supple, trachea midline. No JVD or lymphadenopathy. CARDIOVASCULAR: Regular rate and rhythm without murmurs, gallops, or rubs. RESPIRATORY: Breath sounds equal bilaterally. No accessory muscle use. GASTROINTESTINAL: Abdomen soft, non-tender, nondistended. MUSCULOSKELETAL: No cyanosis, or edema. BACK: Nontender without obvious deformity. No CVA tenderness. EXTREMITIES: No clubbing cyanosis or edema A/P Assessment and Plan Respiratory failure - Intubated for an airway protection - Start SBT fopr possible extubation today Encephalopathy - Metabolic toxic - Alcohol intoxication - Concussion - CT head negative - MRI and EEG-Normal Syncope - MRI normal, EEG normal, Echo Pending - Carotid ultrasound-no hemodynamically significant stenosis DVT GI prophylaxis - Teds SCDs - Lovenox and Pepcid Critical Care: The total critical care time was 35 minutes. Time to perform other separately billable procedures was not included in the critical care time. Boris Barber MD Oct 17, 2016 10:52
--- NOTE | 2016-10-17 21:01 | EC ---
Study Study Date:10/17/2016 STUDY CONCLUSIONS SUMMARY - Left ventricle: The cavity size was normal. Wall thickness was normal. Systolic function was normal. The estimated ejection fraction was 65%. Wall motion was normal; there were no regional wall motion abnormalities. - Mitral valve: Mild regurgitation. - Pulmonary arteries: Systolic pressure was moderately increased. PA peak pressure: 58mm Hg (S). If LV function is below 40, please consider prescribing an ACEI or ARB or document rationale for non-use. PROCEDURE DATA STUDY STATUS: Elective. Procedure: Transthoracic echocardiography. Image quality was good. Scanning was performed from the parasternal, apical, and subcostal acoustic windows. Study completion: The patient tolerated the procedure well. Transthoracic echocardiography. M-mode, complete 2D, complete spectral Doppler, and color Doppler. Weight: Weight: 159.7lb. Patient status: Inpatient. CARDIAC ANATOMY LEFT VENTRICLE: The cavity size was normal. Wall thickness was normal. Systolic function was normal. The estimated ejection fraction was 65%. Wall motion was normal; there were no regional wall motion abnormalities. AORTIC VALVE: Trileaflet; normal thickness leaflets. Doppler: Transvalvular velocity was within the normal range. There was no stenosis. No regurgitation. Valve area: 1.72cm^2(VTI). Valve area: 1.69cm^2 (Vmax). Mean gradient: 4mm Hg (S). AORTA: Aortic root: The aortic root was normal in size. MITRAL VALVE: Structurally normal valve. Doppler: Transvalvular velocity was within the normal range. There was no evidence for stenosis. Mild regurgitation. Peak gradient: 2mm Hg (D). LEFT ATRIUM: The atrium was normal in size. RIGHT VENTRICLE: The cavity size was normal. Wall thickness was normal. PULMONIC VALVE: Doppler: Transvalvular velocity was within the normal range. There was no evidence for stenosis. No regurgitation. TRICUSPID VALVE: Structurally normal valve. Doppler: Transvalvular velocity was within the normal range. Trace regurgitation. PULMONARY ARTERY: The main pulmonary artery was normal-sized. Systolic pressure was moderately increased. RIGHT ATRIUM: The atrium was normal in size. PERICARDIUM: There was no pericardial effusion. SYSTEMIC VEINS: Inferior vena cava: The vessel was normal in size. Patient weight: 159.7lb _Ejection fraction:_ 65-75% _Fractional shortening:_ 32% up to 5Kg 5-11.5Kg 11.6-22.9Kg 23-45Kg 45-57Kg Aortic Root 7-13 <17 13-22 17-27 17-27 LA diam 6-13 <23 24-38 33-47 37-40 RVID 10-17 7-15 7-15 7-18 8-17 LVIDd 12-22 <32 24-38 33-47 37-40 LVPW 2-4 3-6 5-7 6-8 7-8 IVS 2-4 3-6 5-7 6-8 7-8 BASIC MEASUREMENTS ADULT NORMAL Left ventricle LV internal dimension, ED, chordal level, *38.1 mm 43-52 PLAX LV internal dimension, ES, chordal level, 24.2 mm 23-38 PLAX Fractional shortening, chordal level, PLAX 36 % >29 LV posterior wall thickness, ED 8.2 mm IVS/LVPW ratio, ED 1 <1.3 Ventricular septum Septal thickness, ED 8.18 mm Aortic valve Leaflet separation 18 mm 15-26 Aorta Root diameter, ED 24 mm Left atrium Anterior-posterior dimension 31 mm BASIC MEASUREMENTS ADULT NORMAL Aortic valve Leaflet separation 18 mm 15-26 DOPPLER MEASUREMENTS ADULT NORMAL Main pulmonary artery Pressure, S *58 mm Hg =30 Aortic valve Peak velocity, S 138 cm/s Mean velocity, S 98 cm/s VTI, S 27.1 cm Mean gradient, S 4 mm Hg Valve area, VTI 1.72 cm^2 Valve area, Vmax 1.69 cm^2 Mitral valve Peak E-wave velocity 72.1 cm/s Peak A-wave velocity 82.9 cm/s Deceleration time *130 ms 150-230 Peak gradient, D 2 mm Hg Peak E/A ratio 0.9 Tricuspid valve Regurgitant peak velocity 328 cm/s Peak RV-RA gradient, S 43 mm Hg Maximal regurgitant velocity 328 cm/s Right ventricle RV pressure, S *58 mm Hg <30 LEGEND: Mean values are shown as u=mean value. Asterisk (*) reis values outside specified normal range. Prepared and signed by Ana Hartley [id number]
[2016-10-17] MEDS: ACETAMINOPHEN 325 MG TAB PO PRN (22:45)
[2016-10-18] VITALS (10 sets, daily range): BP systolic 121–148; BP diastolic 63–82; PULSE 70–89; RESP 18–19; TEMP 98.3–99.8; O2SAT 91–98
[2016-10-18] MEDS: PANTOPRAZOLE SODIUM 40 MG VIAL IVP SCH (01:22)
[2016-10-18] MEDS: RESP: ALBUTEROL 2.5 MG/IPRATROPIUM 0.5 MG NEB (SCH) NEB ×2 (03:25→10:17)
[2016-10-18] MEDS: CHLORHEXIDINE GLUCONATE 2 % 1 PACK (2 CLOTHS) TOP SCH (04:00)
[2016-10-18 04:23] LABS: AUTOMATED NEUTROPHIL # 6.2 TH/MM3 (1.8-7.7); BASOPHIL # 0.1 TH/MM3 (0-0.2); BASOPHIL % 0.7 % (0.0-2.0); EOSINOPHIL # 0.3 TH/MM3 (0-0.4); EOSINOPHIL % 3.6 % (0.0-4.0); HEMO FLAGS DIFF FINAL; LYMPH % 22.8 % (9.0-44.0); LYMPHOCYTE # 2.2 TH/MM3 (1.0-4.8); MEAN CELL VOLUME 95.1 FL (80.0-100.0); MEAN CORPUSCULAR HEMOGLOBIN 31.8 PG (27.0-34.0); MEAN CORPUSCULAR HGB CONC 33.5 % (32.0-36.0); MONO % 7.8 % (0.0-8.0); NEUT % 65.1 % (16.0-70.0); PLATELET COUNT 182 TH/MM3 (150-450); RED BLOOD COUNT 3.37 MIL/MM3 (4.00-5.30); RED CELL DISTRIBUTION WIDTH 12.6 % (11.6-17.2); WHITE BLOOD COUNT 9.6 TH/MM3 (4.0-11.0)
[2016-10-18 05:01] LABS: ALT (GPT) 67 U/L (10-53); ANION GAP 6 MEQ/L (5-15); AST (GOT) 69 U/L (15-37); BICARBONATE 24.7 MEQ/L (21.0-32.0); BLOOD UREA NITROGEN 9 MG/DL (7-18); CHLORIDE 111 MEQ/L (98-107); GLOMERULAR FILTRATION RATE 158 ML/MIN (>89); POTASSIUM 3.7 MEQ/L (3.5-5.1); SODIUM (NA) 142 MEQ/L (136-145)
[2016-10-18 05:03] LABS: ALKALINE PHOSPHATASE 89 U/L (45-117); TOTAL BILIRUBIN ADULT 0.8 MG/DL (0.2-1.0)
[2016-10-18] MEDS: HEPARIN SODIUM - SQ 10,000 UNITS/ML VIAL SQ SCH ×3 (05:30→20:13)
[2016-10-18] MEDS: CHLORHEXIDINE 0.12% (ORAL KIT) 15 ML CUP MT SCH ×2 (08:00→20:00)
[2016-10-18] MEDS: BACITRACIN TOP OINT 15 GM TUBE TOP SCH ×2 (09:00→20:14)
--- NOTE | 2016-10-18 09:18 | PD.TRANSFR ---
Transfer Summary Admission Date Oct 16, 2016 at 00:24 Admitting Diagnosis head injury,unable to control airway Diagnoses: (1) Acute head injury with loss of consciousness Diagnosis: Principal (2) Airway compromise Diagnosis: Principal (3) Respiratory failure Diagnosis: Principal (4) Alcohol intoxication Diagnosis: Principal (5) Leukocytosis Diagnosis: Principal Transfer Summary/Subjective 50-year-old lady that fell backwards and struck the back of her head. Initially had a GCS of 14 with that declined to a GCS of 9. That's when the trauma alert was called. She continued to decline and paramedics intubated her on scene and she arrived intubated. Intoxicated with alcohol level 254 on admission> SUBJ 10/17: Waking up intermittently following commands, son at the bedside translates for her (patient understands Belarusian only). Chest x-ray shows improving infiltrates 10/19: Extubated yesterday tolerating well. Following commands, remains weak. No evidence of alcohol withdrawal Objective Vital Signs Date Time Temp Pulse Resp B/P Pulse Ox O2 Delivery O2 Flow Rate FiO2 10/18/16 07:40 95 21 10/18/16 06:00 80 10/18/16 04:00 98.3 18 121/66 10/17/16 21:44 Nasal Cannula 2.00 Intake and Output 10/17/16 10/17/16 10/18/16 08:00 16:00 00:00 Intake Total 1266 ml 1001 ml 953 ml Output Total 250 ml 1000 ml 600 ml Balance 1016 ml 1 ml 353 ml Result Diagram: 10/18/16 0257 10/18/16 0257 Objective Remarks GENERAL/NEURO: Obese, well-developed patient. Follows commands. No focal deficits SKIN: Warm and dry. HEAD: Normocephalic. EYES: No scleral icterus. No injection or drainage. NECK: Supple, trachea midline. No JVD or lymphadenopathy. CARDIOVASCULAR: Regular rate and rhythm without murmurs, gallops, or rubs. RESPIRATORY: Breath sounds equal bilaterally. No accessory muscle use. GASTROINTESTINAL: Abdomen soft, non-tender, nondistended. MUSCULOSKELETAL: No cyanosis, or edema. BACK: Nontender without obvious deformity. No CVA tenderness. EXTREMITIES: No clubbing cyanosis or edema A/P Assessment and Plan Respiratory failure - Intubated for an airway protection, extubated 10/19/16, tolerating well Encephalopathy - Metabolic toxic - Alcohol intoxication - Concussion - CT head negative - MRI and EEG-Normal - Watch for alcohol withdrawal, use prn Ativan Syncope - MRI normal, EEG normal - Carotid ultrasound-no hemodynamically significant stenosis DVT GI prophylaxis - Teds SCDs - Lovenox and Pepcid Critical Care: Level 3. Hospitalist consulted for assuming care in am 10/19/16. Transfer to [facility] Boris Barber MD Oct 18, 2016 09:18
[2016-10-18] MEDS: MULTIVITAMIN TAB PO SCH (09:32)
[2016-10-18] MEDS: FOLIC ACID 1 MG TAB PO SCH (09:32)
[2016-10-18] MEDS: DOCUSATE SODIUM 50 MG/SENNA 8.6 MG TAB PO SCH ×2 (09:32→20:13)
[2016-10-18] MEDS: THIAMINE HCL 100 MG TAB PO SCH (09:32)
[2016-10-18] MEDS: SODIUM CHLOR 0.9% 1000 ML INJ 1,000 ML IV SCH (09:33)
[2016-10-18] MEDS: ACETAMINOPHEN 325 MG TAB PO PRN (18:24)
[2016-10-19 00:07] VITALS: BP 155/85; PULSE 67; RESP 22; TEMP 98.7; O2SAT 94
[2016-10-19] MEDS: SODIUM CHLORIDE 0.9% FLUSH 10 ML FLUSH IV FLUSH PRN (01:36)
[2016-10-19] MEDS: ACETAMINOPHEN 325 MG TAB PO PRN ×2 (01:36→06:04)
[2016-10-19] MEDS: PANTOPRAZOLE SODIUM 40 MG VIAL IVP SCH (01:36)
[2016-10-19] MEDS: CHLORHEXIDINE GLUCONATE 2 % 1 PACK (2 CLOTHS) TOP SCH (04:00)
[2016-10-19] MEDS: HEPARIN SODIUM - SQ 10,000 UNITS/ML VIAL SQ SCH ×2 (06:00→13:08)
[2016-10-19 06:26] VITALS: BP 138/79; PULSE 72; RESP 18; TEMP 98.5; O2SAT 96
[2016-10-19 08:00] VITALS: BP 132/76; PULSE 61; RESP 20; TEMP 98.3; O2SAT 95
[2016-10-19 08:39] LABS: HEMATOCRIT 33.5 % (35.0-46.0); MEAN CELL VOLUME 92.4 FL (80.0-100.0); MEAN CORPUSCULAR HEMOGLOBIN 32.2 PG (27.0-34.0); MEAN CORPUSCULAR HGB CONC 34.8 % (32.0-36.0); PLATELET COUNT 247 TH/MM3 (150-450); RED BLOOD COUNT 3.62 MIL/MM3 (4.00-5.30); RED CELL DISTRIBUTION WIDTH 12.1 % (11.6-17.2); REVIEW FLAG FINAL; WHITE BLOOD COUNT 7.4 TH/MM3 (4.0-11.0)
[2016-10-19] MEDS: DOCUSATE SODIUM 50 MG/SENNA 8.6 MG TAB PO SCH (08:52)
[2016-10-19] MEDS: CHLORHEXIDINE 0.12% (ORAL KIT) 15 ML CUP MT SCH (08:52)
[2016-10-19] MEDS: BACITRACIN TOP OINT 15 GM TUBE TOP SCH (08:53)
[2016-10-19 09:22] LABS: BICARBONATE 27.2 MEQ/L (21.0-32.0); POTASSIUM 3.6 MEQ/L (3.5-5.1)
[2016-10-19 12:00] VITALS: BP 130/73; PULSE 65; RESP 20; TEMP 98.5; O2SAT 93
--- NOTE | 2016-10-19 12:07 | HHI.DCPOC ---
Discharge Care Plan Diagnosis: (1) Alcohol intoxication (2) Respiratory failure (3) Acute head injury with loss of consciousness (4) Traumatic hematoma of scalp (5) Airway compromise Goals to Promote Your Health * To prevent worsening of your condition and complications * To maintain your health at the optimal level Directions to Meet Your Goals Take your medications as prescribed Follow your dietary instruction Follow activity as directed Keep your appointments as scheduled Take your immunizations and boosters as scheduled If your symptoms worsen call your PCP, if no PCP go to Urgent Care Center or Emergency Room Smoking is Dangerous to Your Health. Avoid second hand smoke Call the 24-hour hour crisis hotline for domestic abuse at Taryn Navarrete MD Oct 19, 2016 12:06
--- NOTE | 2016-10-19 12:08 | HHI.DS ---
Discharge Summary Admission Date Oct 16, 2016 at 00:24 Discharge Date: Oct 19, 2016 Admitting Diagnosis head injury,unable to control airway (1) Acute head injury with loss of consciousness ICD Code: S06.9X9A Diagnosis: Principal (2) Airway compromise ICD Code: J98.8 Diagnosis: Principal (3) Respiratory failure ICD Code: J96.90 Diagnosis: Principal (4) Alcohol intoxication ICD Code: F10.129 Diagnosis: Principal (5) Leukocytosis ICD Code: D72.829 Diagnosis: Principal Procedures See hospital course. Brief History - From Admission The patient is a 48-year-old female, who per EMS report was intoxicated and fell from standing height onto the back of her head. She was unconscious for approximately two minutes and when EMS arrived, she initially refused the chance for it, however, she had sudden decrease in GCS and altered mental status prompting transport to [facility] as a Trauma Alert. See history of present illness for further information. CBC/BMP: 10/19/16 0825 10/19/16 0825 Significant Findings Laboratory Tests Test 10/17/16 10/18/16 10/19/16 03:36 02:57 08:25 White Blood Count 15.6 TH/MM3 (4.0-11.0) Red Blood Count 3.56 MIL/MM3 3.37 MIL/MM3 3.62 MIL/MM3 (4.00-5.30) (4.00-5.30) (4.00-5.30) Hemoglobin 11.2 GM/DL 10.7 GM/DL (11.6-15.3) (11.6-15.3) Hematocrit 33.5 % 32.0 % 33.5 % (35.0-46.0) (35.0-46.0) (35.0-46.0) Potassium Level 3.3 MEQ/L (3.5-5.1) Chloride Level 112 MEQ/L 111 MEQ/L (98-107) (98-107) Random Glucose 132 MG/DL (74-106) Calcium Level 8.0 MG/DL 7.8 MG/DL 8.4 MG/DL (8.5-10.1) (8.5-10.1) (8.5-10.1) Creatinine 0.42 MG/DL (0.50-1.00) Aspartate Amino Transf 69 U/L (15-37) (AST/SGOT) Alanine Aminotransferase 67 U/L (10-53) (ALT/SGPT) Total Protein 6.0 GM/DL (6.4-8.2) Albumin 2.6 GM/DL (3.4-5.0) Imaging Last Impressions Chest X-Ray 10/17/16 0600 Signed Impressions: Service Date/Time: Monday, October 17, 2016 03:08 - CONCLUSION: Improving bibasilar infiltrates. Philippe Davis MD Carotid Artery Ultrasound 10/17/16 0000 Signed Impressions: Service Date/Time: Monday, October 17, 2016 08:21 - CONCLUSION: Negative exam. No significant atherosclerotic plaquing. No sonographic or Doppler findings of a hemodynamically significant stenosis. Lai Mathew MD Pelvis X-Ray 10/16/16 0003 Signed Impressions: Service Date/Time: Saturday, October 15, 2016 23:51 - CONCLUSION: Unremarkable examination of the pelvis. Tin Stewart Jr., MD Head CT 10/16/16 0003 Signed Impressions: Service Date/Time: Sunday, October 16, 2016 00:09 - CONCLUSION: 1. No acute intracranial abnormality. 2. Right parietal soft tissue hematoma. 3. Chronic paranasal sinus disease. Tin Stewart Jr., MD Cervical Spine CT 10/16/16 0003 Signed Impressions: Service Date/Time: Sunday, October 16, 2016 00:09 - CONCLUSION: 1. No fracture or dislocation. 2. Multilevel degenerative changes. Tin Stewart Jr., MD Brain MRI 10/16/16 0000 Signed Impressions: Service Date/Time: Sunday, October 16, 2016 14:24 - CONCLUSION: 1. No intracranial abnormality is seen. 2. Right frontal scalp hematoma. 3. Sinus disease. Sunil Nam MD PE at Discharge GENERAL: in NAD SKIN: Warm and dry. HEAD: Normocephalic. EYES: No scleral icterus. No injection or drainage. NECK: Supple, trachea midline. No JVD or lymphadenopathy. CARDIOVASCULAR: Regular rate and rhythm without murmurs, gallops, or rubs. RESPIRATORY: Breath sounds equal bilaterally. No accessory muscle use. GASTROINTESTINAL: Abdomen soft, non-tender, nondistended. MUSCULOSKELETAL: No cyanosis, or edema. BACK: Nontender without obvious deformity. No CVA tenderness. NEURO: AAO X 2 CN 2-12 intact. Sensory and motor grossly intact. Coordination is intact. No tremors noted. Transfer Summary 50-year-old lady that fell backwards and struck the back of her head. Initially had a GCS of 14 with that declined to a GCS of 9. That's when the trauma alert was called. She continued to decline and paramedics intubated her on scene and she arrived intubated. Intoxicated with alcohol level 254 on admission> SUBJ 10/17: Waking up intermittently following commands, son at the bedside translates for her (patient understands Uzbek only). Chest x-ray shows improving infiltrates 10/19: Extubated yesterday tolerating well. Following commands, remains weak. No evidence of alcohol withdrawal Pt update on day of discharge Follow-up for altered mental status Patient's son is at the bedside and is translating for patient. Patient declined any other drafter detail including the [employer] video translation system. She stated that she wanted her son to translate. Patient knows her name, date, and location. Patient stated that she is feeling like her normal self and is asking to call home. She denies any nausea vomiting shortness of breathing or any pain. She stated that she is doing well. Patient stated that she occasionally drinks and does not get any symptoms of tremors, abdominal pain, nausea/ vomiting when she does not drink. Hospital Course Respiratory failure -Patient was admitted as a TRAUMA ALERT and was intubated due to altered mental status. She was admitted to the surgical ICU initially under the surgeon and painter barrel care. - She was Intubated for an airway protection, extubated 10/19/16, -Patient did well without intubation and was satting very well on room air. Alcohol intoxication -Patient had no signs of alcohol withdrawal during hospital course. -Education alcohol was given. Encephalopathy - Due to Metabolic toxic from Alcohol intoxication - CT head negative but does show a scalp hematoma. - MRI and EEG-Normal Syncope - MRI normal, EEG normal - Carotid ultrasound-no hemodynamically significant stenosis Pt Condition on Discharge: Good Discharge Disposition: Discharge Home Discharge Time: <= 30 minutes Discharge Instructions DIET: Follow Instructions for: As Tolerated, No Restrictions Activities you can perform: Regular-No Restrictions Follow up Referrals: PCP Follow-up - 3-5 Days Continued Medications: Bupropion HCl ER 24 HR (Wellbutrin Xl 24 HR) 150 Mg Tab 150 MG PO DAILY Control Depression Ref 0 TAB Taryn Navarrete MD Oct 19, 2016 12:08
== END 2016-10-19 15:48 | disposition home or self-care (01) | DRG 88 ==
LOC: NEPI 23:56 → EDBD 10-16 00:24 → NEDA 10-16 00:24 → N03A 10-16 00:37 → N05A 10-18 11:39
PROVIDERS: ADMIT Family Medicine; ATTEND Family Medicine
PROC: 5A1935Z Respiratory Ventilation, Less than 24 Consecutive Hours (ICD-10-PCS; principal; 2016-10-16)
DX: S06.0X1A Concussion with loss of consciousness of 30 minutes or less, initial encounter (principal); J96.01 Acute respiratory failure with hypoxia; J96.02 Acute respiratory failure with hypercapnia; G93.40 Encephalopathy, unspecified; E44.1 Mild protein-calorie malnutrition; F10.129 Alcohol abuse with intoxication, unspecified; W18.39XA Other fall on same level, initial encounter; Y93.89 Activity, other specified; Y92.9 Unspecified place or not applicable; Y99.9 Unspecified external cause status; Y90.8 Blood alcohol level of 240 mg/100 ml or more; D72.829 Elevated white blood cell count, unspecified; R55 Syncope and collapse
CPT/HCPCS: 36600; 70450; 70551; 71010; 72125; 72170; 80048; 80053; 80307; 81001; 82140; 82435; 82565; 82805; 82947; 82948; 83735; 84132; 84295; 84443; 84520; 85025; 85027; 85384; 85610; 85730; 86850; 86900; 86901; 87641; 93306; 93880; 94002; 94003; 94150; 94640; 94664; 95819; 96374; 99291; A0431-QM-SH; A0436-QM-SH; C9113; G0390; J1644; J3010; J3480; J7030